=== PATIENT | male | born 1985 | race Hispanic/Latino ===

== ENCOUNTER 2025-04-17 21:21 | Inpatient (IN) | payer OTHER, SELFPAY ==
[2025-04-17 12:16] VITALS: BP 150/88
[2025-04-17 12:43] LABS: Hematocrit 42.0 % (39.0-52.0); Hemoglobin 14.7 g/dL (13.0-18.0); Mean Corp Hgb Conc. 35.0 g/dL (33.0-37.0); Mean Corpuscular Volume 99.1 fL (80.0-94.0); Nucleated Red Blood Cells % 0 % (-); Red Cell Dist. Width 17.6 % (11.5-14.5)
[2025-04-17 13:16] LABS: ALT (SGPT) 49 U/L (0-50); AST (SGOT) 126 U/L (17-59); Albumin 3.0 g/dl (3.5-5.0); Alkaline Phosphatase 308 U/L (38-126); Blood Urea Nitrogen 7 mg/dl (9-20); Calcium 7.8 mg/dl (8.4-10.2); Carbon Dioxide 20 mmol/L (22-30); Chloride 109 mmol/L (98-107); Glucose 102 mg/dl (70-99); Lipase 399 U/L (23-300); Platelet Count 138 10^3/uL (130-400); Potassium 3.8 mmol/L (3.5-5.1); Sodium 135 mmol/L (135-145); Total Protein 8.4 g/dl (6.3-8.2); eGFR > 60.00
[2025-04-17 16:42] VITALS: BMI 50.8
[2025-04-17 16:43] VITALS: BP 136/69
[2025-04-17 17:00] VITALS: BP 143/88
[2025-04-17 18:00] VITALS: BP 111/69
--- NOTE | 2025-04-17 18:14 | ED.GENMED ---
History of Present Illness
<ALLA Fair - Last Filed: 04/17/25 20:45>
General
Chief Complaint: Abdominal Symptoms
Source: patient
Exam Limitations: none
Time Seen by Provider: 04/17/25 17:11
Nursing documentation reviewed up to this point in time: agreed with
History of Present Illness
History of Present Illness:
Patient is a 39-year-old male who presents to the ER complaining of abdominal and scrotal swelling for 1 week. He feels very full after eating.
He has no past medical history. However he has not seen a doctor in years.
He drinks alcohol maybe every 2 weeks.
He denies any nausea vomiting fever chills.
Past History
<ALLA Fair - Last Filed: 04/17/25 20:45>
Past History
ED Past Medical History: None
ED Past Surgical History: None
Social History
Tobacco: Non-smoker
Alcohol: None
Drug: None
Living: with family
Phy Exam
<ALLA Fair - Last Filed: 04/17/25 20:45>
General Physical Exam
General Presentation: no apparent distress
General age: appears stated age
General Skin: warm and dry
General Habitus: normal
General Mental: alert
General Hydration: appears well hydrated
Cardiovascular Exam
Cardiovascular Exam: tachycardia
Pulmonary Exam
Pulmonary Exam: lungs clear and no respiratory distress
Gastrointestinal Exam
Gastrointestinal Exam: other (distended abdomen )
Genitourinary Exam Male
Exam Male: other (scrotal swelling )
Neurological Exam
Neurological Exam: alert and oriented x3
Musculoskeletal Exam
Musculoskeletal Exam: full ROM and other ( b/l l/e swelling pitting edema )
Skin Exam
Skin Exam: normal color and warm/dry
Psychiatric Exam
Psychiatric Exam: normal mood/affect
Course
<ALLA Fair - Last Filed: 04/17/25 20:45>
Orders/Labs/Results
Orders:
Orders
04/17/25 12:30
Alcohol Urgent
Complete Blood Count/With Diff Urgent
Comprehensive Metabolic Panel Urgent
Lipase Urgent
04/17/25 18:30
Add On- LAB Urgent
Tests Added?: alcohol level
US Abdomen Complete/Upper Urgent
Comment:
Reason For Exam: elevated lfts abd distention
04/17/25 18:34
PT/INR [Prothrombin Time] Urgent
04/17/25 20:41
Venous Doppler Lwr Ext Bilat [US Periph Venous LOWER Ext Jimmie] Urgent
Comment:
Reason For Exam: l/e swelling
04/17/25 20:42
Abdominal Doppler US [US Abdominal Doppler Only] Urgent
Comment:
Reason For Exam: abd distention rule out Portal vein clot
04/17/25 21:02
Admit/Transfer Patient As Directed
Co-Sign Provider:
Level of Care: Inpatient admission
Assign to:: IMU- Intermediate Care
Physician / Group: htay
Diagnosis: Hepatic cirrhosis + Splenomegaly.+ Mild abdominal ascites +mild coagulopath
Reason for Hospitalization: Hepatic cirrhosis + Splenomegaly.+ Mild abdominal ascites +mild coagulopathy +
hypoalbuminemia
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
dysfunction ( Hypoalbuminemia and coagulopathy )
Suspect ETOH Hepatic cirrhosis.
Expected length of stay greater than two midnights?: Yes
ELOS- Estimated Length of Stay in days: 4
I certify the patient meets the requirements for IP care: Yes
04/17/25 21:08
Code Status As Directed
Resuscitation Status: Full Code
04/17/25 21:17
GGT [GGTP] Routine
NH3 [Ammonia] Routine
04/18/25 00:12
0.9% Sodium Chloride [Nss (Preservative Free)] See Protocol IV PRN PRN
Bisacodyl [Dulcolax] 10 mg RECTAL [id number] PRN
Docusate W/Senna [Senokot-S] 1 tablet PO BIDPRN PRN
FOLic ACID [Folvite] 1 mg 0.9% Sodium Chloride 50 ml [Nss] 50 ml IV DAILYPRN
Lorazepam [Ativan] 1 mg IV Q1HPRN PRN
Lorazepam [Ativan] 1 mg PO Q2HPRN PRN
Lorazepam [Ativan] 2 mg IV Q1HPRN PRN
Polyethylene Glycol Powder [Miralax] 17 grams PO DAILYPRN PRN
04/18/25 00:12
Case Management Consult Once
Case Management Consult: Other
Comment: Substance abuse counseling
DIETARY IP CONSULT Routine
Reason for Consult: Nutrition support, possible refeeding guidelines
GASTROINTESTINAL CONSULT Routine
Consulting Provider: Clemente Brar
Was physician already notified: Yes
Reason for consult: Hepatic cirrhosis + Splenomegaly.+ Mild abdominal ascites +mild coagulopath
IRAD CONSULT Routine
Consulting Provider: Power Martinez
Was physician already notified: Yes
Procedure being ordered, including laterality if applicable: Paracentesis
Acknowledgement that appropriate orders are entered: Yes
Activity As Directed
Activity Level: With Assistance
Intake/ Output As Directed
Frequency: Per unit guidelines
MSAS SCORE As Directed
MSAS Score 0-4: Repeat MSAS every 2 hours until 0-4 for three consecutive assessments, then every 4 hours x 48
hours.
MSAS Score 5-7: For MILD withdrawl symptoms. Repeat MSAS and RASS every 2 hours
MSAS Score 8-11: For MODERATE withdrawal symptoms. Repeat MSAS and RASS every 1 hour. Consider ICU or IMU
level of care.
MSAS Score > 11: For SEVERE withdrawal symptoms. Repeat MSAS and RASS every 1 hour. Notify provider, consider
ICU level of care.
MSAS Additional Instructions: If no improvement or no decrease in score from severe to moderate within 12
hours, consult psychiatry
MSAS Notify Provider: Notify provider if patient requires more than 10 mg of Lorazepam in eight hour period.
Pneumatic Compression Sleeves As Directed
Type: Knee high
Vital Signs As Directed
Frequency: Per unit guidelines
Weight As Directed
Frequency: Daily
IRAD Cytology Routine
Date Specimen was Collected: 04/18/25
Time Specimen was Collected: 08:13
Source: Peritoneal Fluid
Clinical Impression: Hepatic cirrhosis + Splenomegaly.+ Mild abdominal ascites +mild
coagulopath
History of Malignancy: none
History of Radiation / Chemotherapy: none
Submitting Physician: Alexia ORNELAS
DX Deep Vein Thrombosis Video Routine
04/18/25 00:30
Thiamine Injection 200 mg IV Q8
04/18/25 05:52
Complete Blood Count/No Diff IN AM
Comprehensive Metabolic Panel IN AM
Lipase IN AM
Prothrombin Time Urgent
04/18/25 Breakfast
Full Liquids
At Your Request: Full Participation
04/18/25 08:00
FOLic ACID [Folvite] 1 mg PO DAILY
04/18/25 08:21
Body Fluid Albumin Routine
Fluid Source: Peritoneal (Ascites)
Date Specimen was Collected: 04/18/25
Time Specimen was Collected: 08:13
Body Fluid Amylase Routine
Fluid Source: Peritoneal (Ascites)
Date Specimen was Collected: 04/18/25
Time Specimen was Collected: 08:13
Body Fluid Cell Count Routine
What is the Body Fluid: peritoneal fluid
Date Specimen was Collected: 04/18/25
Time Specimen was Collected: 08:13
Comment: post procedure
Fluid Culture with Gram Stain Routine
GRISELDA Source: Peritoneal Fluid
Specimen Description:
Date Specimen was Collected: 04/18/25
Time Specimen was Collected: 08:13
Comment: Post Procedure
04/18/25 09:23
Urine Drug Abuse Screen Routine
Date Specimen was Collected: 04/18/25
Time Specimen was Collected: 09:16
04/21/25 08:00
Thiamine HCl [Vitamin B1] 100 mg PO BID
Abnormal Lab Results
04/17/25 04/17/25 04/17/25
12:30 18:34 21:17
RBC 4.24 L 10^6/uL
(4.70-6.10)
MCV 99.1 H fL
(80.0-94.0)
MCH 34.7 H pg
(27.0-31.0)
RDW 17.6 H %
(11.5-14.5)
Abs Immat Gran (auto) 0.1 H 10^3/uL
(0-0.05)
Absolute Monos (auto) 1.1 H 10^3/uL
(0.1-0.6)
Immature Gran % 0.6 H %
(0-0.5)
Monocytes % 10.5 H %
(1.7-9.3)
PT 20.7 H Sec
(11.4-14.6)
Chloride 109 H mmol/L
(98-107)
Carbon Dioxide 20 L mmol/L
(22-30)
BUN 7 L mg/dl
(9-20)
Creatinine 0.6 L mg/dL
(0.7-1.3)
Glucose 102 H mg/dl
(70-99)
Calcium 7.8 L mg/dl
(8.4-10.2)
Total Bilirubin 5.7 H mg/dl
(0.2-1.3)
GGT 482 H U/L
(15-73)
AST 126 H U/L
(17-59)
Alkaline Phosphatase 308 H U/L
(38-126)
Ammonia 57 H umol/L
(9-30)
Total Protein 8.4 H g/dl
(6.3-8.2)
Albumin 3.0 L g/dl
(3.5-5.0)
Lipase 399 H U/L
(23-300)
04/17/25 12:30
04/17/25 12:30
Vital Signs
Initial and Last Documented VS:
Initial Vital Signs
Temp Pulse Resp BP Pulse Ox
98.8 F 105 18 150/88 99
04/17/25 12:16 04/17/25 12:16 04/17/25 12:16 04/17/25 12:16 04/17/25 12:16
Last Documented Vital Signs
Temp Pulse Resp BP Pulse Ox
98.5 F 96 18 126/68 96
04/19/25 07:20 04/19/25 07:20 04/19/25 07:20 04/19/25 07:20 04/19/25 07:20
Ice Cream Scooper consulted with Physician
Ice Cream Scooper consulted with physician?: Yes
Name of Physician Consulted: Maxime
<Maya Swartz MD - Last Filed: 04/19/25 09:56>
Orders/Labs/Results
Orders:
Orders
04/17/25 12:30
Alcohol Urgent
Complete Blood Count/With Diff Urgent
Comprehensive Metabolic Panel Urgent
Lipase Urgent
04/17/25 18:30
Add On- LAB Urgent
Tests Added?: alcohol level
US Abdomen Complete/Upper Urgent
Comment:
Reason For Exam: elevated lfts abd distention
04/17/25 18:34
PT/INR [Prothrombin Time] Urgent
04/17/25 20:41
Venous Doppler Lwr Ext Bilat [US Periph Venous LOWER Ext Jimmie] Urgent
Comment:
Reason For Exam: l/e swelling
04/17/25 20:42
Abdominal Doppler US [US Abdominal Doppler Only] Urgent
Comment:
Reason For Exam: abd distention rule out Portal vein clot
04/17/25 21:02
Admit/Transfer Patient As Directed
Co-Sign Provider:
Level of Care: Inpatient admission
Assign to:: IMU- Intermediate Care
Physician / Group: htay
Diagnosis: Hepatic cirrhosis + Splenomegaly.+ Mild abdominal ascites +mild coagulopath
Reason for Hospitalization: Hepatic cirrhosis + Splenomegaly.+ Mild abdominal ascites +mild coagulopathy +
hypoalbuminemia
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
dysfunction ( Hypoalbuminemia and coagulopathy )
Suspect ETOH Hepatic cirrhosis.
Expected length of stay greater than two midnights?: Yes
ELOS- Estimated Length of Stay in days: 4
I certify the patient meets the requirements for IP care: Yes
04/17/25 21:08
Code Status As Directed
Resuscitation Status: Full Code
04/17/25 21:17
GGT [GGTP] Routine
NH3 [Ammonia] Routine
04/18/25 00:12
0.9% Sodium Chloride [Nss (Preservative Free)] See Protocol IV PRN PRN
Bisacodyl [Dulcolax] 10 mg RECTAL [id number] PRN
Docusate W/Senna [Senokot-S] 1 tablet PO BIDPRN PRN
FOLic ACID [Folvite] 1 mg 0.9% Sodium Chloride 50 ml [Nss] 50 ml IV DAILYPRN
Lorazepam [Ativan] 1 mg IV Q1HPRN PRN
Lorazepam [Ativan] 1 mg PO Q2HPRN PRN
Lorazepam [Ativan] 2 mg IV Q1HPRN PRN
Polyethylene Glycol Powder [Miralax] 17 grams PO DAILYPRN PRN
04/18/25 00:12
Case Management Consult Once
Case Management Consult: Other
Comment: Substance abuse counseling
DIETARY IP CONSULT Routine
Reason for Consult: Nutrition support, possible refeeding guidelines
GASTROINTESTINAL CONSULT Routine
Consulting Provider: Clemente Brar
Was physician already notified: Yes
Reason for consult: Hepatic cirrhosis + Splenomegaly.+ Mild abdominal ascites +mild coagulopath
IRAD CONSULT Routine
Consulting Provider: Power Martinez
Was physician already notified: Yes
Procedure being ordered, including laterality if applicable: Paracentesis
Acknowledgement that appropriate orders are entered: Yes
Activity As Directed
Activity Level: With Assistance
Intake/ Output As Directed
Frequency: Per unit guidelines
MSAS SCORE As Directed
MSAS Score 0-4: Repeat MSAS every 2 hours until 0-4 for three consecutive assessments, then every 4 hours x 48
hours.
MSAS Score 5-7: For MILD withdrawl symptoms. Repeat MSAS and RASS every 2 hours
MSAS Score 8-11: For MODERATE withdrawal symptoms. Repeat MSAS and RASS every 1 hour. Consider ICU or IMU
level of care.
MSAS Score > 11: For SEVERE withdrawal symptoms. Repeat MSAS and RASS every 1 hour. Notify provider, consider
ICU level of care.
MSAS Additional Instructions: If no improvement or no decrease in score from severe to moderate within 12
hours, consult psychiatry
MSAS Notify Provider: Notify provider if patient requires more than 10 mg of Lorazepam in eight hour period.
Pneumatic Compression Sleeves As Directed
Type: Knee high
Vital Signs As Directed
Frequency: Per unit guidelines
Weight As Directed
Frequency: Daily
IRAD Cytology Routine
Date Specimen was Collected: 04/18/25
Time Specimen was Collected: 08:13
Source: Peritoneal Fluid
Clinical Impression: Hepatic cirrhosis + Splenomegaly.+ Mild abdominal ascites +mild
coagulopath
History of Malignancy: none
History of Radiation / Chemotherapy: none
Submitting Physician: Alexia ORNELAS
DX Deep Vein Thrombosis Video Routine
04/18/25 00:30
Thiamine Injection 200 mg IV Q8
04/18/25 05:52
Complete Blood Count/No Diff IN AM
Comprehensive Metabolic Panel IN AM
Lipase IN AM
Prothrombin Time Urgent
04/18/25 Breakfast
Full Liquids
At Your Request: Full Participation
04/18/25 08:00
FOLic ACID [Folvite] 1 mg PO DAILY
04/18/25 08:21
Body Fluid Albumin Routine
Fluid Source: Peritoneal (Ascites)
Date Specimen was Collected: 04/18/25
Time Specimen was Collected: 08:13
Body Fluid Amylase Routine
Fluid Source: Peritoneal (Ascites)
Date Specimen was Collected: 04/18/25
Time Specimen was Collected: 08:13
Body Fluid Cell Count Routine
What is the Body Fluid: peritoneal fluid
Date Specimen was Collected: 04/18/25
Time Specimen was Collected: 08:13
Comment: post procedure
Fluid Culture with Gram Stain Routine
GRISELDA Source: Peritoneal Fluid
Specimen Description:
Date Specimen was Collected: 04/18/25
Time Specimen was Collected: 08:13
Comment: Post Procedure
04/18/25 09:23
Urine Drug Abuse Screen Routine
Date Specimen was Collected: 04/18/25
Time Specimen was Collected: 09:16
04/21/25 08:00
Thiamine HCl [Vitamin B1] 100 mg PO BID
Abnormal Lab Results
04/17/25 04/17/25 04/17/25
12:30 18:34 21:17
RBC 4.24 L 10^6/uL
(4.70-6.10)
MCV 99.1 H fL
(80.0-94.0)
MCH 34.7 H pg
(27.0-31.0)
RDW 17.6 H %
(11.5-14.5)
Abs Immat Gran (auto) 0.1 H 10^3/uL
(0-0.05)
Absolute Monos (auto) 1.1 H 10^3/uL
(0.1-0.6)
Immature Gran % 0.6 H %
(0-0.5)
Monocytes % 10.5 H %
(1.7-9.3)
PT 20.7 H Sec
(11.4-14.6)
Chloride 109 H mmol/L
(98-107)
Carbon Dioxide 20 L mmol/L
(22-30)
BUN 7 L mg/dl
(9-20)
Creatinine 0.6 L mg/dL
(0.7-1.3)
Glucose 102 H mg/dl
(70-99)
Calcium 7.8 L mg/dl
(8.4-10.2)
Total Bilirubin 5.7 H mg/dl
(0.2-1.3)
GGT 482 H U/L
(15-73)
AST 126 H U/L
(17-59)
Alkaline Phosphatase 308 H U/L
(38-126)
Ammonia 57 H umol/L
(9-30)
Total Protein 8.4 H g/dl
(6.3-8.2)
Albumin 3.0 L g/dl
(3.5-5.0)
Lipase 399 H U/L
(23-300)
04/17/25 12:30
04/17/25 12:30
Vital Signs
Initial and Last Documented VS:
Initial Vital Signs
Temp Pulse Resp BP Pulse Ox
98.8 F 105 18 150/88 99
04/17/25 12:16 04/17/25 12:16 04/17/25 12:16 04/17/25 12:16 04/17/25 12:16
Last Documented Vital Signs
Temp Pulse Resp BP Pulse Ox
98.5 F 96 18 126/68 96
04/19/25 07:20 04/19/25 07:20 04/19/25 07:20 04/19/25 07:20 04/19/25 07:20
<ALLA Fair - Last Filed: 04/17/25 20:45>
MDM/Problems Addressed
Differential Diagnosis Includes:
Not limited to hepatitis, biliary obstruction, mass, pancreatitis
MDM/Problems Addressed:
As documented patient is a 39-year-old male who presents with abdominal bloating and scrotal swelling for the past week. On exam he has scleral icterus abdominal distention likely ascites, lower extremity swelling and scrotal swelling. He denies
any fevers he is afebrile his white count is normal. He does drink beer every 2 weeks. His bilirubin however is elevated at 5.7 with a elevated AST of 126 alk phos of 308 and lipase of 399.
Case discussed with DR Swartz .
US ordered an pending at this time.
2030: Ultrasound shows hepatic cirrhosis mild ascites. Patient will require admission for further evaluation. Case discussed with GI on-call who does recommend abdominal ultrasound with Dopplers to rule out portal vein thrombosis. Will order this
Doppler ultrasound as well as bilateral lower extremities with lower extremity swelling.
<ALLA Fair - Last Filed: 04/17/25 20:45>
*Radiology
Radiology exam reviewed: radiology read reviewed
*Pulse Oximetry
SaO2: 95
Oxygen Mode of Delivery: Room air
Patient hypoxic: no
*Critical Care Note
Total Time (30-74mins, 75-104mins- exclusive of procedures): Not Applicable
<ALLA Fair - Last Filed: 04/17/25 20:45>
Patient Management
Discussion with other providers: Maintenance Shop Technician (GI DR Brar)
ED Attending Note
<ALLA Fair - Last Filed: 04/17/25 20:45>
-
Portions of this chart may have been created with voice recognition software.� Occasional wrong word or��sound alike� substitutions may have occurred due to the inherent limitations of voice recognition software.
<Maya Swartz MD - Last Filed: 04/19/25 09:56>
ED Attending Note
Patient seen and examined by attending physician: Yes
I performed the substantive portion of visit, reviewed & personally made and approve the management plan that is documented in note by myself or IZABELA.: Yes
ED Attending Note:
This patient is a 39-year-old male who says he was perfectly well until 2 days ago when he noticed scrotal swelling. He thinks that this is related to the fact that he does not have a car and has been riding his bicycle to and from work. He denies
bleeding, fever, chills, chest pain, shortness of breath, abdominal pain. He does note abdominal bloating. He denies anorexia, heavy alcohol use, heavy acetaminophen use. On exam, patient has icteric sclera, abdominal distention, but abdomen soft
and nontender. He has moderate scrotal swelling noted without tenderness. Liver abnormalities noted appears to be an obstructive pattern although no ductal dilatation, ultrasound consistent with cirrhosis and mild ascites, PT slightly elevated s.
Case discussed with GI, patient will be admitted.
Discharge Plan
Departure
Patient Disposition: Admit
Date of Disposition: 04/17/25
Time of Disposition: 20:32
Admit to: Med/Surg
Admit to doctor: hospitalist
Presentation/result/management discussed w/ accepting MD/DO: Hospitalist
Patient with high blood pressure during this ER visit?: Yes
Condition: Fair
Covid-19: Not Applicable
Discharge Problem:
Elevated LFTs, Ascites
Interventions
Interventions:
*General Assessment Last Done: 04/17/25 12:19
*Neglect/Abuse Screening Last Done: 04/17/25 12:19
*ED Influenza Vaccine History Last Done: 04/17/25 12:19
[facility] Fall Risk Assessment Tool Last Done: 04/17/25 16:42
*Risk Screen - Suicide (C-SSRS) Last Done: 04/17/25 12:19
*Nursing Disposition Last Done: 04/18/25 00:21
VW-Ngbukd-Pqflqhxpkh Assessment Last Done: 04/17/25 16:42
Discharge Date and Time
Discharge Date/Time: 04/18/25 00:22
[2025-04-17 18:59] LABS: INR 1.76; PT 20.7 Sec (11.4-14.6)
--- NOTE | 2025-04-17 20:43 | HPS.HSE ---
Family Physician
-
Family Physician: * NONE
Chief Complaint
-
abdominal and scrotal swelling
History of Present Illness
HPI
39M SHx concerning for ETOH use disorder - reports drinking ETOH maybe every 2 weeks ??
- denied any significant PMHx and however he has not seen a doctor in years.
- seen at ER
- reports abdominal and scrotal swelling for 1 week.
- very full after eating.
- denies any nausea vomiting fever chills.
Medical History
Past Medical History
Past Medical History: Reports None
Past Surgical History: Reports None
Social History
Alcohol: Other (drink ETOH q2 weeks )
Family History
Family History: Not pertinent
Allergies / Home Medications
Allergies reflects when Allergies were last updated in [facility].
Home Medications with original date entered in [facility]
Allergy/Medication List:
Not on any meds
If medication reconciliation has not been performed, why?: Other (He is not on any medication )
Review of Systems
-
Constitutional: Reports No Symptoms
EENT: Reports No Symptoms
Respiratory: Reports No Symptoms
Cardiac: Reports No Symptoms
Abdomen/GI: Reports See HPI
: Reports No Symptoms
Musculoskeletal: Reports No Symptoms
Skin: Reports No Symptoms
Neurological: Reports No Symptoms
Endocrine: Reports No Symptoms
Hematologic/Lymphatic: Reports No Symptoms
Psych: Reports No Symptoms
Physical Exam
Vital Signs
Vital Signs
Temp Pulse Resp BP Pulse Ox
98.8 F 110 18 111/69 95
04/17/25 12:16 04/17/25 18:15 04/17/25 12:16 04/17/25 18:00 04/17/25 18:15
Physical Exam
General: No Apparent Distress, Comfortable, Conversant and Other (obese )
HEENT: NormoCephalic and Other (icteric sclera )
Respiratory: Clear
Cardiac: S1/S2
GI: Other (distended abdomen obese )
Rectal: Deferred by Provider
Genito-urinary: Other (b./l scrotal swelling )
Musculoskeletal: Edema, Left Lower Extremity and Edema, Right Lower Extremity
Skin: Warm
Neuro: AO x 3 and No Motor Deficits
Psych: Calm
Laboratory Results
-
04/17/25 12:30
04/17/25 12:30
Laboratory Results
PT 20.7 Sec (11.4-14.6) H 04/17/25 18:34
INR 1.76 04/17/25 18:34
Total Bilirubin 5.7 mg/dl (0.2-1.3) H 04/17/25 12:30
AST 126 U/L (17-59) H 04/17/25 12:30
ALT 49 U/L (0-50) 04/17/25 12:30
Alkaline Phosphatase 308 U/L (38-126) H 04/17/25 12:30
Lipase 399 U/L (23-300) H 04/17/25 12:30
Data Reviewed
-
Lab Data: Labs Reviewed by me
Impression/Plan
-
Vital Signs
Temp Pulse Resp BP Pulse Ox
98.8 F 110 18 111/69 95
04/17/25 12:16 04/17/25 18:15 04/17/25 12:16 04/17/25 18:00 04/17/25 18:15
Laboratory Tests
04/17/25 04/17/25
12:30 18:34
WBC 10.4
Hgb 14.7
MCV 99.1 H
PT 20.7 H
INR 1.76
Chloride 109 H
Carbon Dioxide 20 L
BUN 7 L
Creatinine 0.6 L
eGFR > 60.00
Calcium 7.8 L
Total Bilirubin 5.7 H
AST 126 H
ALT 49
Alkaline Phosphatase 308 H
Total Protein 8.4 H
Albumin 3.0 L
Lipase 399 H
Alcohol, Quantitative 22
Pending GGT
US Abdomen Complete/Upper
Hepatic cirrhosis.
Splenomegaly.
Mild abdominal ascites.
Cholelithiasis. Gallbladder wall thickening is more likely to be reactive, but recommend clinical correlation.
NO PRIOR hospitalist admission:
ASSESSMENT & PLAN
Hepatic cirrhosis + Splenomegaly.+ Mild abdominal ascites +mild coagulopathy + hypoalbuminemia
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
Suspect ETOH Hepatic cirrhosis.
Splenomegaly.
Mild abdominal ascites
Stable mentation , AAO3
- Suspect ETOH liver cirrhosis
- Scrotal swelling due to hypoalbuminemia and anasarca
- NH3 level for baseline
- Hyperbilirubinemia
- Doppler US to assess for PVT
- Viral Hepatitis panel
- R/O SBP
- hold IV ABx and Lasix for now
- IR consult for evaluation of abdominal paracentesis
- GI consulted
Hi risk for ETOH WDS
Suspect ETOH use disorder
- Noted tachycardia
- EtOH level 20
- Hi MCV
- Pending GGT
- MSAS protocol
- ETH severe WD protocol
DVT Px: SCD
Full code
IMU
[2025-04-17 21:16] VITALS: BP 134/77
[2025-04-17 21:38] LABS: Ammonia 57 umol/L (9-30)
[2025-04-17 21:41] LABS: GGTP 482 U/L (15-73)
[2025-04-18] VITALS (10 sets, daily range): BP systolic 104–171; BP diastolic 51–90; BMI 49.9
--- NOTE | 2025-04-18 00:15 | PTCARENOTE ---
Patient received from the ED via stretcher accompanied by RN. Transferred and admitted to IMU 3349. Patient ambulated to bed, gait steady. See apprenticeship representative charted on worklist flowsheet. BBS clear. S1S2 regular but tachy, murmur audible. Sinus tach
on CM. Positive pulses x 4 extrem, pedal pulses diminished. BLE edema 2+. Abdomen distended and round, liver palpable, abdomen soft. No c/o pain at this time. No N/V. Bed in low and locked position. Call costello within reach. Patient advised to call if
needs to use bathroom, verbalized understanding.
[2025-04-18] MEDS: THIAMINE INJECTION 200 MG IV ×3 (02:30→15:37)
--- NOTE | 2025-04-18 03:00 | PTCARENOTE ---
Noted that patient saturation dropping to 77% on RA while sleeping, most likely component of sleep apnea undiagnosed. Oxygen at 2L/nc placed with recovery of sats to 95%. CHERYL Rodríguez notified and orders received for oxygen. No further desaturation
episodes noted while sleeping.
[2025-04-18 06:14] LABS: INR 1.96; PT 22.5 Sec (11.4-14.6)
[2025-04-18 06:29] LABS: ALT (SGPT) 40 U/L (0-50); AST (SGOT) 103 U/L (17-59); Albumin 2.5 g/dl (3.5-5.0); Alkaline Phosphatase 218 U/L (38-126); Blood Urea Nitrogen 8 mg/dl (9-20); Calcium 7.9 mg/dl (8.4-10.2); Carbon Dioxide 23 mmol/L (22-30); Chloride 111 mmol/L (98-107); Estimated Creatinine Clearance > 125 ml/min; Glucose 86 mg/dl (70-99); Lipase 251 U/L (23-300); Potassium 3.9 mmol/L (3.5-5.1); Sodium 135 mmol/L (135-145); Total Protein 7.5 g/dl (6.3-8.2); eGFR > 60.00
[2025-04-18 06:50] LABS: Hematocrit 38.4 % (39.0-52.0); Hemoglobin 13.3 g/dL (13.0-18.0); Mean Corp Hgb Conc. 34.6 g/dL (33.0-37.0); Mean Corpuscular Volume 99.7 fL (80.0-94.0); Platelet Count 131 10^3/uL (130-400); Red Cell Dist. Width 17.8 % (11.5-14.5)
--- NOTE | 2025-04-18 07:51 | PTCARENOTE ---
Patient sent for paracentesis with transport with ticket to ride.
--- NOTE | 2025-04-18 09:01 | CON.GI ---
Addendum entered and electronically signed by Clemente Brar DO 04/18/25 14:39:
I saw and examined the patient.
The BRASS SORTER's note was reviewed and I agree with the note.
Comment: Mr Kisha Wren is a 39 y.o male with no known past medical history who presented to the ED with new onset lower extremity edema, abdominal distention, along with scrotal swelling. Reported significant alcohol use over the past several
years. Otherwise, no other melena, nausea/vomiting, abdominal pain, or confusion. Denies any family history of liver disease or liver cancer or personal history of known liver disease. He was found to have US imaging concerning for hepatic
cirrhosis along with evidence of portal hypertension with splenomegaly and mild to abdominal ascites. Ultrasound Doppler obtained demonstrating patent vasculature without any obvious PVT however the right portal vein was not well-visualized and
slow flow within the portal vein suggesting portal hypertension. Clinically, etiology seems highly suspicious for decompensated alcoholic cirrhosis as his labs also demonstrate synthetic dysfunction further supportive of underlying cirrhosis. Now
s/p recent paracentesis on 04/18/25 with removal of 2.9 L removed pending additional testing to rule out SBP along with assessing SAAG and cytology. Would defer starting steroids at this time as not consistent with alcoholic hepatitis. Would still
favor obtaining MRI WWO contrast for further evaluation given limited visualization of the right portal vein to definitively exclude PVT along with assessing his liver given his ultrasound findings suggesting of cirrhosis. Hold diuretics pending
additional paracentesis studies, however would start Lasix 40 mg once daily along with spironolactone 100 mg tomorrow once SBP ruled out. Agree with obtaining viral hepatitis serologies and would benefit from an eventual serological workup of
chronic liver disease as an outpatient along with HCC screening. To consider EGD inpatient vs outpatient for EV screening. Discussed importance of alcohol abstinence along ensuring adequate nutrition while inpatient. Needs outpatient follow-up
however concerned about undocumented status and without insurance. Rest of ongoing care as below.
GI will continue to follow.
Original Note:
Consultation
-
Date/Time Consultation Requested: 04/18/25 0015
Date/Time Consultation Performed: 04/18/25 0900
Requesting Provider: Villa Dukes MD
Performing Provider: ALLA Byrd, Clemente Brar DO
Reason for Consultation: ascites
Medical History
Chief Complaint / HPI
Chief Complaint: abdominal and LE swelling
History of Present Illness:
Pt is a 39yo with only medical care for finger laceration in many years. He now presents to with onset of lower extremity and abdominal swelling. Pt denies history of known liver disease, cirrhosis, hepatitis, and denies any current medication
or OTC medication use. He admits to ETOH use about 8-10 or even more beers every other week. He noted edema about 1 week prior to admission. He otherwise denies dysphagia, GERD, nausea, vomiting, diarrhea, constipation or rectal bleeding. No hx
EGD or colonoscopy in past. On admission labs with 10.4, hbg 14.7, platlets 138, INR 1.76, bili 5.7, AST 126, ALT 49, alk phos 308, albumin 3. Hepatitis and tox screen panel pending, ETOH level 22.
04/17/25 US doppler 1. No thrombus within the main portal vein, or left portal vein. Right portal vein was not well visualized.2. Slow flow within the main portal vein, suggestive of portal HTN
04/17/25 US Abdomen Complete/Upper Hepatic cirrhosis.SM .Mild abdominal ascites.Cholelithiasis. Gallbladder wall thickening is more likely to be reactive, but recommend clinical correlation
04/18/25 - Para 2900ml , fluid pending
Past Medical History
Past Medical History: Other (finger laceration with sutures )
Social History
Tobacco: Non-Smoker
Alcohol: Binge Drinker (8-10 beer every 2 weeks )
Drug: None
Personal:
Living: With Family
Employment: Employed
Family History
Family History: Other (no family hx liver disease or colon CA)
Allergies / Home Medications
Allergy/AdvReac Type Severity Reaction Status Date / Time
No Known Allergies Allergy Unverified 04/17/25 12:17
�Medication �Instructions �Recorded
No Meds [No Current Medications] 04/17/25
Review of Systems
-
History Source: Patient
Constitutional: Reports Weight Gain and Fatigue
EENT: Reports No Symptoms
Respiratory: Reports No Symptoms
Cardiac: Reports No Symptoms
Abdomen/GI: Reports Abdominal Pain (with pressure with fluid )
: Reports Dark Urine
Musculoskeletal: Reports No Symptoms
Skin: Reports No Symptoms
Neurological: Reports Weakness
Endocrine: Reports No Symptoms
Hematologic/Lymphatic: Reports No Symptoms
Vital Signs
Temp Pulse Resp BP Pulse Ox
98.1 F 104 18 125/83 94
04/18/25 07:55 04/18/25 08:55 04/18/25 08:55 04/18/25 08:55 04/18/25 08:41
Physical Exam
Exam
General: Well Developed, Well Nourished and No Apparent Distress
HEENT: Normocephalic and Other (jaundice )
Respiratory: Clear
Cardiac: Peripheral Edema and Other (tachy )
GI: Soft, Non Tender and Distended
Genito-urinary: Other (scrotal swelling)
Musculoskeletal: No Clubbing and No Cyanosis
Skin: Warm and Dry
Neuro: Awake, Alert and AO x 3
Results
WBC 9.0 10^3/uL (4.8-10.8) 04/18/25 05:52
Hgb 13.3 g/dL (13.0-18.0) 04/18/25 05:52
Hct 38.4 % (39.0-52.0) L 04/18/25 05:52
MCV 99.7 fL (80.0-94.0) H 04/18/25 05:52
Plt Count 131 10^3/uL (130-400) 04/18/25 05:52
Absolute Neuts (auto) 6.1 10^3/uL (1.4-6.5) 04/17/25 12:30
PT 22.5 Sec (11.4-14.6) H 04/18/25 05:52
INR 1.96 04/18/25 05:52
Sodium 135 mmol/L (135-145) 04/18/25 05:52
Potassium 3.9 mmol/L (3.5-5.1) 04/18/25 05:52
Chloride 111 mmol/L (98-107) H 04/18/25 05:52
Carbon Dioxide 23 mmol/L (22-30) 04/18/25 05:52
BUN 8 mg/dl (9-20) L 04/18/25 05:52
Creatinine 0.6 mg/dL (0.7-1.3) L 04/18/25 05:52
Calcium 7.9 mg/dl (8.4-10.2) L 04/18/25 05:52
Total Bilirubin 6.1 mg/dl (0.2-1.3) H 04/18/25 05:52
AST 103 U/L (17-59) H 04/18/25 05:52
ALT 40 U/L (0-50) 04/18/25 05:52
Alkaline Phosphatase 218 U/L (38-126) H 04/18/25 05:52
Lipase 251 U/L (23-300) 04/18/25 05:52
Diagnostic Image Results:
04/17/25 US doppler 1. No thrombus within the main portal vein, or left portal vein. Right portal vein was not well visualized.2. Slow flow within the main portal vein, suggestive of portal HTN
04/17/25 US Abdomen Complete/Upper Hepatic cirrhosis.SM .Mild abdominal ascites.Cholelithiasis. Gallbladder wall thickening is more likely to be reactive, but recommend clinical correlation
04/18/25 - Para 2900ml , fluid pending
Prior GI Procedures:
EGD: none
Colonoscopy: none
Assessment / Plan
-
Pt is a 39yo with only medical care for finger laceration in many years. He now presents to with onset of lower extremity and abdominal swelling. Pt denies history of known liver disease, cirrhosis, hepatitis, and denies any current medication
or OTC medication use. He admits to ETOH use about 8-10 or even more beers every other week. He noted edema about 1 week prior to admission. He otherwise denies dysphagia, GERD, nausea, vomiting, diarrhea, constipation or rectal bleeding. No hx
EGD or colonoscopy in past. On admission labs with 10.4, hbg 14.7, platlets 138, INR 1.76, bili 5.7, AST 126, ALT 49, alk phos 308, albumin 3. Hepatitis and tox screen panel pending, ETOH level 22.
04/17/25 US doppler 1. No thrombus within the main portal vein, or left portal vein. Right portal vein was not well visualized.2. Slow flow within the main portal vein, suggestive of portal HTN
04/17/25 US Abdomen Complete/Upper Hepatic cirrhosis.SM .Mild abdominal ascites.Cholelithiasis. Gallbladder wall thickening is more likely to be reactive, but recommend clinical correlation
04/18/25 - Para 2900ml , fluid pending
-ascites/LE swelling scrotal edema
-US concern for cirrhosis
-splenomegaly
-Portal HTN
-cholelithiasis
-hx binge ETOH use
-tachycardia
-coagulopathy
-hypoalbuminemia
PLAN:
Etiology of symptoms with concern for ETOH cirrhosis with possible ETOH hepatitis
-s/p para for 2900ml await fluid analysis to calculate SAAG
t/c adding diuretic
admission MELD 3.0-- 21, DF 41.1 04/17 repeat 49.8 on 04/18 with control of [address] Brar for NAC
hepatitis panel pending, will need further OP liver serologies
monitor for withdrawal
counseled on ETOH abstinence
thiamine/folate, good nutrition
OP follow up for cirrhosis management -pt unsure about insurance status and no current PCP
2 gram na diet
-
-
Thank you for consultation and allowing me to participate in the patient's care. Please call the [facility] GI physician during the after hours with any questions or concerns.
[2025-04-18] MEDS: FOLVITE 1 MG PO (09:16)
--- NOTE | 2025-04-18 10:13 | W.PN.HOSP.TC ---
Today's Communication/Plan
-
Transfer out of IMU
Started on a regular diet
Await GI input
Assessment / Plan
Assessment / Plan
ASSESSMENT & PLAN
Admitted for abdominal swelling, scrotal swelling , LE edema secondary to ascites and fluid overload in the setting of cirrhosis
New diagnosis of hepatic cirrhosis + Splenomegaly.+ Mild abdominal ascites +mild coagulopathy + hypoalbuminemia
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
Suspect ETOH Hepatic cirrhosis.
Ammonia elevation but no confusion/encephalopathy
Status post 2900 mL of ascitic fluid tap-ascites secondary to portal hypertension; no evidence of SBP
Await GI input. Started on diuretics for volume management
Hepatitis serology pending
ETOH use disorder
- EtOH level 20
- No evidence of withdrawal currently
- MSAS protocol
- Continue folic acid and thiamine.
Transfer out of IMU
Started on regular diet
Discussed with RN
Discussed with GI's nurse practitioner
DVT Px: SCD
Full code
Anticipated Discharge: 24 - 48 hours
Subjective/Interval History
-
Date of Service: April 18, 2025
Back from his paracentesis.
Denies any nausea vomiting or abdominal pain.
Denies any fever or chills. No shortness of breath.
Objective Data
-
Labs:
Laboratory Results
04/18/25
05:52
WBC 9.0
Hgb 13.3
Hct 38.4 L
Plt Count 131
PT 22.5 H
INR 1.96
Sodium 135
Potassium 3.9
Chloride 111 H
Carbon Dioxide 23
BUN 8 L
Creatinine 0.6 L
Glucose 86
Calcium 7.9 L
Total Bilirubin 6.1 H
AST 103 H
ALT 40
Alkaline Phosphatase 218 H
Vital Signs:
Vital Signs
Temp Pulse Resp BP Pulse Ox
98.1 F 104 18 125/83 93
04/18/25 07:55 04/18/25 08:55 04/18/25 08:55 04/18/25 08:55 04/18/25 08:48
I&O
04/17/25 04/18/25 04/19/25
06:59 06:59 06:59
Intake Total 720 / 720
Balance 720 / 720
Physical Exam
-
General: No Apparent Distress and Comfortable
Respiratory: Clear to Auscultation and Non Labored Respirations; Negative Accessory Resp Muscle Use
Cardiac: Regular Rhythm, S1/S2 and Tachycardic
GI: Soft, Nondistended, Normal Bowel Sounds and Other (obese); Negative Nontender
Musculoskeletal: Edema, Right Lower Extrem and Edema, Left Lower Extrem
Neuro: AO x 3 and No Motor Deficits; Negative Tremors, Slurred Speech or Facial Droop
Psych: Calm; Negative Confused or Agitated
Data Reviewed
-
Labs: Labs Reviewed by me
[2025-04-18 10:19] LABS: Body Fluid Second Tech SS
--- NOTE | 2025-04-18 10:58 | CM ---
Addendum entered by Ishan Logan 04/18/25 11:34:
Re: Insurance: VIDAL Olmstead reached out to [facility]- Healthcare Receivable Specialist here at , retail wireless sales representative said that she met with the patient, even though the patient gets paid yoo-under the table at $500 a week= $2,000 a month, the patient is over
income for insurance, which is $1826. [facility] retail wireless sales representative said there is a way, but there is a form and the patient would need something from his employer.
Re: No PCP & No Pharmacy: VIDAL will provided the patient with the [facility] Clinical information since he also does not have a PCP or Pharmacy. This way, the patient can get assistance with insurance, PCP, and possible pharmacy assistance if need
be from this clinic. VIDAL met with his brother who was in the room and provided this information to them.
PLAN: Anticipate Home No Needs.
Original Note:
I.A: Completed By VIDAL Olmstead. 39M concerning for ETOH use disorder - reports drinking ETOH maybe every 2 weeks -denied any significant PMHx and however he has not seen a doctor in years, reports abdominal and scrotal swelling for 1 week.
Patient lives with his his [id number], No DME, No VN/PT, No STR.
Patient has no PCP- will see if there are resources
Pharmacy- None- will see about local health clinics
Insurance- None- will see if admissions is assisting the patient.
CM cosulted for alcohol use- patient is interested, [facility] will see the patient today or tomorrow. PLAN: Anticipate Home No Needs.
[2025-04-18 18:45] LABS: Hepatitis B Surface Antigen Negative (Negative)
[2025-04-18 20:08] LABS: Hepatitis A Antibody, Total Positive (Negative); Hepatitis C Antibody Negative (Negative)
[2025-04-19] MEDS: THIAMINE INJECTION 200 MG IV ×2 (01:13→08:05)
--- NOTE | 2025-04-19 04:50 | PTCARENOTE ---
report called to receiving rn on 4w.
--- NOTE | 2025-04-19 05:20 | PTCARENOTE ---
Patient transferred from IMU via wheelchair. Patient AAOx3, vital signs stable, and complains of no pain. Oriented to room and call costello within reach.
[2025-04-19 06:00] VITALS: BMI 47.9
[2025-04-19 06:06] VITALS: BP 124/70
[2025-04-19 07:20] VITALS: BP 126/68
[2025-04-19 07:58] LABS: INR 1.91; PT 22.1 Sec (11.4-14.6)
[2025-04-19] MEDS: FOLVITE 1 MG PO (08:05)
[2025-04-19 08:08] LABS: Hematocrit 40.1 % (39.0-52.0); Hemoglobin 13.9 g/dL (13.0-18.0); Mean Corp Hgb Conc. 34.7 g/dL (33.0-37.0); Mean Corpuscular Volume 100.3 fL (80.0-94.0); Platelet Count 123 10^3/uL (130-400); Red Cell Dist. Width 17.9 % (11.5-14.5)
[2025-04-19 08:30] LABS: ALT (SGPT) 39 U/L (0-50); AST (SGOT) 102 U/L (17-59); Albumin 2.4 g/dl (3.5-5.0); Alkaline Phosphatase 242 U/L (38-126); Blood Urea Nitrogen 9 mg/dl (9-20); Calcium 7.8 mg/dl (8.4-10.2); Carbon Dioxide 25 mmol/L (22-30); Chloride 110 mmol/L (98-107); Estimated Creatinine Clearance > 125 ml/min; Glucose 96 mg/dl (70-99); Potassium 3.9 mmol/L (3.5-5.1); Sodium 136 mmol/L (135-145); Total Protein 7.1 g/dl (6.3-8.2); eGFR > 60.00
--- NOTE | 2025-04-19 10:11 | W.PN.GI.CBS2 ---
Addendum entered and electronically signed by Lachelle Bryan MD 04/19/25 13:19:
I saw and examined the patient.
The BASE REMOVER's note was reviewed and I agree with the note.
Comment: Alcohol cirrhosis decompensated with ascites status post paracentesis with 2.9 L removed and negative for SBP. Can start him on low-dose diuretics with 20 mg of Lasix and 50 mg of Aldactone and continue to monitor electrolytes he will
follow-up at [facility] and discussed with Dr. Gorman, case management is also involved. Advised strict alcohol abstinence. MRI results noted negative for HCC no evidence of portal vein or splenic vein thrombosis, he does have evidence of
gastroesophageal varices. Will need EGD as outpatient. continue paracenteses as outpatient as needed for symptomatic relief. His hepatitis A antibody total is positive he will need vaccination for hepatitis B
Laboratory Tests
04/18/25
05:52
Hepatitis A IgM Ab Negative
Hepatitis A Ab Total Positive
Hep Bs Antigen Negative
Hep Bs Antibody Negative
Hep B Core Total Ab Negative
Hep B Core IgM Ab Negative
Hepatitis C Antibody Negative
04/19 MRI
SEVERE HEPATIC CIRRHOSIS.
2. Mild hepatosplenomegaly.
3. EXTENSIVE GASTROESOPHAGEAL VARICES secondary to portal hypertension.
4. Small to moderate volume of ascites.
5. Moderate diffuse small bowel and colonic wall thickening (possibly portal enterocolopathy).
6. Mildly distended gallbladder.
7. Moderate airspace consolidation in the lower lobes (either subsegmental atelectasis or pneumonia).
8. Moderate elevation of the right hemidiaphragm.
9. SEVERE DIFFUSE ANASARCA.
Original Note:
Today's Communication / Plan
-
Etiology of symptoms with concern for ETOH cirrhosis with decompensation
-s/p para for 2900ml, neg SBP, SAAG c/w cirrhosis
t/c adding diuretics but discussed with pt concern for OP follow up for labs monitoring - discussed need to review with labs for assistance program
will review with Dr. Bryan for MRI during admission for portal vein evaluation
admission MELD 3.0-- 21 , repeat today 22 cont to trend labs
hold on steroids as likely more consistent with cirrhosis and decompensation
hepatitis panel neg with prior hep A immunity will need further OP liver serologies
no signs of ETOH withdrawal noted
counseled on ETOH abstinence
thiamine/folate, good nutrition
2 gram na diet
discussed need to establish insurance as will need OP EGD, serology, diuretic management etc
will review with Dr. Gorman to see if candidate for free clinic and follow up care
Assessment / Plan
-
Pt is a 39yo with only medical care for finger laceration in many years. He now presents to with onset of lower extremity and abdominal swelling. Pt denies history of known liver disease, cirrhosis, hepatitis, and denies any current medication
or OTC medication use. He admits to ETOH use about 8-10 or even more beers every other week. He noted edema about 1 week prior to admission. He otherwise denies dysphagia, GERD, nausea, vomiting, diarrhea, constipation or rectal bleeding. No hx
EGD or colonoscopy in past. On admission labs with 10.4, hbg 14.7, platlets 138, INR 1.76, bili 5.7, AST 126, ALT 49, alk phos 308, albumin 3. Hepatitis and tox screen panel pending, ETOH level 22.
04/17/25 US doppler 1. No thrombus within the main portal vein, or left portal vein. Right portal vein was not well visualized.2. Slow flow within the main portal vein, suggestive of portal HTN
04/17/25 US Abdomen Complete/Upper Hepatic cirrhosis.SM .Mild abdominal ascites.Cholelithiasis. Gallbladder wall thickening is more likely to be reactive, but recommend clinical correlation
04/18/25 - Para 2900ml neg SBP, SAAG 1.6 with t protein <2
-ascites/LE swelling scrotal edema s/p para 2900ml neg SBP, SAAG 1.6 with t protein <2
-concern for ETOH cirrhosis with decompensation
-splenomegaly
-Portal HTN
-cholelithiasis
-hx binge ETOH use
-tachycardia
-coagulopathy
-hypoalbuminemia
PLAN:
Etiology of symptoms with concern for ETOH cirrhosis with decompensation
-s/p para for 2900ml, neg SBP, SAAG c/w cirrhosis
t/c adding diuretics but discussed with pt concern for OP follow up for labs monitoring - discussed need to review with labs for assistance program
will review with Dr. Bryan for MRI during admission for portal vein evaluation
admission MELD 3.0-- 21 , repeat today 22 cont to trend labs
hold on steroids as likely more consistent with cirrhosis and decompensation
hepatitis panel neg with prior hep A immunity will need further OP liver serologies
no signs of ETOH withdrawal noted
counseled on ETOH abstinence
thiamine/folate, good nutrition
2 gram na diet
discussed need to establish insurance as will need OP EGD, serology, diuretic management etc
will review with Dr. Gorman
Subjective
Subjective
Date of Service: April 19, 2025
Pt feeling better with still with some distention, 2 gram na diet
Objective
Data Reviewed
Laboratory Data:
Laboratory Results
04/19/25 07:12
04/19/25 07:12
Laboratory Results
PT 22.1 Sec (11.4-14.6) H 04/19/25 07:12
INR 1.91 04/19/25 07:12
Total Bilirubin 4.9 mg/dl (0.2-1.3) H 04/19/25 07:12
AST 102 U/L (17-59) H 04/19/25 07:12
ALT 39 U/L (0-50) 04/19/25 07:12
Alkaline Phosphatase 242 U/L (38-126) H 04/19/25 07:12
Lipase 251 U/L (23-300) 04/18/25 05:52
Vital Signs and I&O:
Vital Signs
Temp Pulse Resp BP Pulse Ox
98.5 F 96 18 126/68 96
04/19/25 07:20 04/19/25 07:20 04/19/25 07:20 04/19/25 07:20 04/19/25 07:20
I&O
04/18/25 04/19/25 04/20/25
06:59 06:59 06:59
Intake Total 720 / 720 900 / 900
Output Total 200 / 200
Balance 720 / 720 700 / 700
Physical Exam
Physical Exam
HEENT: Other (jaundice )
Cardiology: Normal Sinus Rhythm
Pulmonary: Clear
GI: Soft, Distended, Non Tender and Other (scrotal swelling )
Extremities: Edema
Neuro: Non Focal
--- NOTE | 2025-04-19 13:54 | W.DCSUMMARY ---
Discharge Summary
Discharge Data
Date of Admission: 04/17/25
Date of Discharge: 04/19/25
-
Pending Results: Yes (Ascitic fluid cytology)
Hospital Course
Primary diagnosis:
New diagnosis of cirrhosis
Cirrhosis with decompensated liver disease with ascites status post paracentesis
Portal hypertension
Gastroesophageal varices
Alcohol use disorder
Hospital course:
39-year-old
Gentleman with no past medical history presented with new onset of lower extremity edema, abdominal distention and scrotal swelling. He has got history with significant alcohol use over several years.
No prior known liver disease.
His ultrasound in admission showed hepatic cirrhosis along with evidence of portal hypertension with splenomegaly and mild abdominal ascites.
Clinically etiology was very concerning for decompensated cirrhosis patient with alcohol cirrhosis. He had 2.9 L removed with no evidence of SBP. SAG gradient were consistent with cirrhosis. Steroids were deferred at this time as it was not
consistent with alcohol hepatitis.
MRI of the abdomen showed no obvious HCC. No evidence of portal vein splenic vein thrombosis. He does have evidence of gastroesophageal varices. Will need an EGD as an outpatient. Continue with paracentesis in outpatient for symptomatic relief.
His hepatitis serology indicates he needs vaccination for hepatitis B.
He was started on low-dose Lasix 20 mg and Aldactone 50 mg daily.
He does not have insurance so case management was involved who referred him to [facility] where they can do blood tests. He was given prescription for 2 weeks and make sure he obtains a follow-up lab work to optimize his medication doses.
Today he was feeling much better from his abdominal distention standpoint. He is tolerating diet without nausea vomiting or diarrhea. Still scrotal swelling persist.
No fever or chills.
No shortness of breath.
Afebrile blood pressure 126/68. Chest was clear. Abdomen was soft. Bilateral lower extremity edema noted.
Deemed medically stable for discharge home. He was advised to go down to [facility] and fill his application to be eligible for care in the clinic.
Consultants on board:
GI Clemente Puri
Portions of this chart may have been created with voice recognition software. Occasional wrong word or 'sound alike' substitutions may have occurred due to the inherent limitations of voice recognition software.
Discharge Plan
-
Patient Disposition: Home (Routine Discharge)
Discharge Diagnosis/Procedures: Cirrhosis with decompensated liver disease with portal hypertension, ascites; alcohol use disorder
Diet: 2 Gram Sodium and Restrict fluids to 64 oz
Activity: As tolerated
Driving Restrictions: Not until seen by your Dr
Bathing Restrictions: None
Blood Work: BMP blood work in one week - arrange through [facility]. Slip given
Specialty Instructions: Weigh Daily- Call MD for wt gain/loss 3 lbs overnight/5 lbs in 1 week
Referrals:
NONE,* [Family Provider, Internal Medicine] - in less than 1 week
Referral Note: Referral made to [facility] -go to office, fill in your application
Clemente Brar, DO [Active, Gastroenterology]
Referral Note: call to arrange GI follow up for continued management of liver disease
Additional Discharge Medication Instructions: 2 weeks of medications are written. You need a blood test in next week prior to continuing them for longer
Prescriptions:
New
folic acid 1 mg Tablet
1 mg PO DAILY Qty: 30 0RF
thiamine mononitrate (vit B1) 100 mg Tablet
100 mg PO BID Qty: 60 0RF
furosemide [Lasix] 20 mg tablet
20 mg PO DAILY Qty: 14 0RF
spironolactone 50 mg tablet
50 mg PO DAILY Qty: 14 0RF
Discharge Orders:
Discharge Patient (As Directed); Ordered 04/19/25
Ordered By: Issac Gorman
Discharge Date and Time
Print Language: PERSIAN
[2025-04-19 15:05] VITALS: BP 144/86
--- NOTE | 2025-04-19 15:09 | CM ---
CM reviewed chart, spoke with Dylan from [facility]- provided patient with outpatient resources.
Provided patient with [facility] application- patient will complete and bring down to Clinic.
Patient has transport home.
CM will continue to follow.
Plan; home with outpatient resources for [facility]
--- NOTE | 2025-04-19 15:54 | PTCARENOTE ---
Rn weatherization coordinator- Patient Taken to [facility]. As per kari at clinic , the process to get an appointment takes [address] Gorman who indicated that patient can get meds when he follows up with Gi doctor.
== END 2025-04-19 15:15 | disposition home or self-care (01) | DRG 433 ==
LOC: 4 WEST ACU 21:21
PROVIDERS: Emergency Medicine; Nurse Practitioner; Nurse Practitioner Adult Health; Radiology Vascular & Interventional Radiology; ADMITTING PHYSICIAN Internal Medicine; ATTENDING PHYSICIAN Internal Medicine; CONSULT PHYSICIAN Student in an Organized Health Care Education/Training Program; EMERGENCY PHYSICIAN Emergency Medicine
PROC: 0W9G3ZZ Drainage of Peritoneal Cavity, Percutaneous Approach (ICD-10-PCS; 2025-04-18)
DX: K70.31 Alcoholic cirrhosis of liver with ascites (principal); D68.9 Coagulation defect, unspecified; K76.6 Portal hypertension; I85.10 Secondary esophageal varices without bleeding; F10.10 Alcohol abuse, uncomplicated; N50.89 Other specified disorders of the male genital organs; R16.1 Splenomegaly, not elsewhere classified; K80.20 Calculus of gallbladder without cholecystitis without obstruction; R00.0 Tachycardia, unspecified; E88.09 Other disorders of plasma-protein metabolism, not elsewhere classified; I86.4 Gastric varices; Y90.1 Blood alcohol level of 20-39 mg/100 ml; Z59.71 Insufficient health insurance coverage; Z79.899 Other long term (current) drug therapy
CPT/HCPCS: 49083; 74183; 76700; 80053; 80306; 82010; 82042; 82077; 82140; 82150; 82248; 82977; 83615; 83690; 84157; 85025; 85027; 85610; 86704; 86705; 86706; 86708; 86709; 86803; 87015; 87070; 87205; 87340; 88112; 88305; 89051; 93970; 93975; 99285; A9581